=== PATIENT | female | born 1955 | race Caucasian/White ===

== ENCOUNTER 2016-09-27 18:34 | Emergency (ER) | payer MEDICARE ==
[2016-09-27 19:41] LABS: ABSOLUTE BASOPHILS # (AUTO) 0.1 10^3/uL (0.0-0.2); ABSOLUTE EOSINOPHILS # (AUTO) 0.2 10^3/uL (0.0-0.6); ABSOLUTE LYMPHOCYTES (AUTO) 2.2 10^3/uL (0.5-4.7); ABSOLUTE MONOCYTES (AUTO) 1.4 10^3/uL (0.1-1.4); BASOPHILS % (AUTO) 0.7 % (0-2); EOSINOPHILS % (AUTO) 1.5 % (0-6); HEMATOCRIT 35.3 % (36.0-47.0); HEMOGLOBIN 11.9 g/dL (12.0-15.5); HGB HCT DIFFERENCE 0.4; LYMPHOCYTES % (AUTO) 14.9 % (13-45); MEAN CORPUSCULAR HGB CONC 33.8 g/dL (32.0-36.0); MEAN CORPUSCULAR VOLUME 89 fl (80-97); MONOCYTES % (AUTO) 9.4 % (3-13); RED BLOOD COUNT 3.97 10^6/uL (3.72-5.28); RED CELL DISTRIBUTION WIDTH 13.1 % (11.5-14.0); SEGMENTED NEUTROPHILS % (AUTO) 73.5 % (42-78); WHITE BLOOD COUNT 14.9 10^3/uL (4.0-10.5)
[2016-09-27 20:05] LABS: ALANINE AMINOTRANSFERASE 26 U/L (9-52); ALBUMIN 3.4 g/dL (3.5-5.0); ALKALINE PHOSPHATASE 107 U/L (38-126); ANION GAP 13 (5-19); ASPARTATE AMINO TRANSFERASE 36 U/L (14-36); BILIRUBIN,DIRECT 0.4 mg/dL (0.0-0.4); BILIRUBIN,TOTAL 0.5 mg/dL (0.2-1.3); BLOOD UREA NITROGEN 26 mg/dL (7-20); CALCIUM 8.6 mg/dL (8.4-10.2); CARBON DIOXIDE 21 mmol/L (22-30); CHLORIDE 96 mmol/L (98-107); CREATINE KINASE 170 U/L (30-135); CREATININE RESULT 3.07 mg/dL (0.52-1.25); GLUCOSE 166 mg/dL (75-110); POTASSIUM 3.3 mmol/L (3.6-5.0); SODIUM 129.7 mmol/L (137-145); TOTAL PROTEIN 6.3 g/dL (6.3-8.2)
--- NOTE | 2016-09-27 20:09 | RADIOLOGY REPORT (SQ) ---
EXAM DESCRIPTION: CHEST SINGLE VIEW COMPLETED DATE/TIME: 09/27/2016 7:42 pm REASON FOR STUDY: falls COMPARISON: 01/17/2015 EXAM PARAMETERS: NUMBER OF VIEWS: One view. TECHNIQUE: Single frontal radiographic view of the chest acquired. RADIATION DOSE: NA LIMITATIONS: None. FINDINGS: LUNGS AND PLEURA: No acute opacities, masses or pneumothorax. No pleural effusion. MEDIASTINUM AND HILAR STRUCTURES: Stable. HEART AND VASCULAR STRUCTURES: Stable. BONES: No acute findings. HARDWARE: None in the chest. OTHER: No other significant finding. IMPRESSION: NO ACUTE RADIOGRAPHIC FINDING IN THE CHEST. TECHNICAL DOCUMENTATION: JOB ID: [id number]
--- NOTE | 2016-09-27 20:13 | RADIOLOGY REPORT (SQ) ---
EXAM DESCRIPTION: CT HEAD WITHOUT COMPLETED DATE/TIME: 09/27/2016 8:00 pm REASON FOR STUDY: multiple falls COMPARISON: None. TECHNIQUE: Axial images acquired through the brain without intravenous contrast. Images reviewed wi th bone, brain and subdural windows. Images stored on PACS. All CT scanners at this facility use dose modulation, iterative reconstruction, and/or weight based d osing when appropriate to reduce radiation dose to as low as reasonably achievable (ALARA). [facility]: Dose Right [facility]: CareDose [facility]: Dose Right [facility]: Teradose 4D [facility]: [employer] RADIATION DOSE: 64.61 mGy. LIMITATIONS: None. FINDINGS: VENTRICLES: Prominent. CEREBRUM: No masses. No hemorrhage. No midline shift. Areas of low density in the white matter mos t likely due to chronic micro-vascular ischemic change. No evidence for acute infarction. CEREBELLUM: No masses. No hemorrhage. No alteration of density. No evidence for acute infarction. EXTRAAXIAL SPACES: Mild age-related involutional change. No fluid collections. No masses. ORBITS AND GLOBE: No intra- or extraconal masses. Normal contour of globe without masses. CALVARIUM: No fracture. PARANASAL SINUSES: No fluid or mucosal thickening. SOFT TISSUES: No mass or hematoma. OTHER: No other significant finding. IMPRESSION: MILD CHRONIC CHANGES OF ATROPHY AND MICROVASCULAR ISCHEMIA. NO ACUTE PROCESS. TECHNICAL DOCUMENTATION: JOB ID: [id number] Quality ID # [id number]: Final reports with documentation of one or more dose reduction techniques (e.g., Au tomated exposure control, adjustment of the mA and/or kV according to patient size, use of iterative reconstruction technique) 2010 [employer]- All Rights Reserved
--- NOTE | 2016-09-27 20:15 | RADIOLOGY REPORT (SQ) ---
EXAM DESCRIPTION: CT CERVICAL SPINE WITHOUT COMPLETED DATE/TIME: 09/27/2016 8:00 pm REASON FOR STUDY: s/p fall COMPARISON: 06/10/2013 TECHNIQUE: Axial images acquired through the cervical spine without intravenous contrast. Images re viewed with lung, soft tissue and bone windows. Reconstructed coronal and sagittal MPR images review ed. Images stored on PACS. All CT scanners at this facility use dose modulation, iterative reconstruction, and/or weight based d osing when appropriate to reduce radiation dose to as low as reasonably achievable (ALARA). [facility]: Dose Right [facility]: CareDose [facility]: Dose Right [facility]: Teradose 4D [facility]: [employer] RADIATION DOSE: 34.21 mGy. LIMITATIONS: None. FINDINGS: ALIGNMENT: Anatomic. MINERALIZATION: Normal. VERTEBRAL BODIES: No fractures or dislocation. DISCS: Multilevel disc space narrowing with osteophytes. FACETS, LATERAL MASSES, POSTERIOR ELEMENTS: Facet arthropathy. No fractures. No dislocation. No ac lisa findings. HARDWARE: None in the spine. VISUALIZED RIBS: No fractures. LUNG APICES AND SOFT TISSUES: No acute findings. OTHER: No other significant finding. IMPRESSION: CHRONIC DEGENERATIVE CHANGES. NO ACUTE FINDINGS. TECHNICAL DOCUMENTATION: JOB ID: [id number] Quality ID # [id number]: Final reports with documentation of one or more dose reduction techniques (e.g., Au tomated exposure control, adjustment of the mA and/or kV according to patient size, use of iterative reconstruction technique) 2010 [employer]- All Rights Reserved
[2016-09-27 20:17] LABS: CREATINE KINASE MB 9.14 ng/mL (<4.55)
[2016-09-27 20:21] LABS: TROPONIN I 4.89 ng/mL
[2016-09-27] MEDS ORDERED: ASPIRIN 325 MG TABLET PO ONE (20:59)
--- NOTE | 2016-09-27 21:10 | ER Document Report ---
ED General Pain - General Chief Complaint: Back Pain Stated Complaint: EYE PAIN Time Seen by Provider: 09/27/16 19:18 Notes: The patient is a 61-year-old female, past medical history diabetes type 2, hypertension, fibromyalgia, depression, presents with several months of right lower back pain. In addition she is feeling like there is pressure behind her eyes for several weeks. She also had a feeling of tingling down her left leg a few days ago. She denies any chest pain, nausea, vomiting, shortness of breath, leg swelling, fevers, abdominal pain, numbness, current tingling, headache or urinary symptoms. TRAVEL OUTSIDE OF THE [place] IN LAST 30 DAYS: No - Related Data Allergies/Adverse Reactions: No Known Allergies Allergy (Verified 09/27/16 18:39) Past Medical History - General Information source: Patient - Social History Smoking Status: Unknown if Ever Smoked Family History: Reviewed & Not Pertinent Patient has suicidal ideation: No Patient has homicidal ideation: No - Past Medical History Cardiac Medical History: Reports: Hx Hypertension Endocrine Medical History: Reports: Hx Diabetes Mellitus Type 2, Hx Hypothyroidism Renal/ Medical History: Denies: Hx Peritoneal Dialysis Malignancy Medical History: Reports: Hx Cervical Cancer, Hx Skin Cancer Musculoskeltal Medical History: Reports Hx Arthritis, Reports Hx Fibromyalgia Psychiatric Medical History: Reports: Hx Depression Past Surgical History: Reports: Hx Appendectomy, Hx Breast Surgery, Hx Section, Hx Cholecystectomy, Hx Thyroid Surgery, Hx Tonsillectomy - Immunizations Hx Diphtheria, Pertussis, Tetanus Vaccination: Yes Hx Pneumococcal Vaccination: 03/09/13 Review of Systems - Review of Systems Notes: REVIEW OF SYSTEMS: CONSTITUTIONAL: -fevers, -chills EENT: +intermittent eye pressure, -difficulty swallowing, -nasal congestion CARDIOVASCULAR:-chest pain, -syncope. RESPIRATORY: -cough, -SOB GASTROINTESTINAL: -abdominal pain, - nausea, -vomiting, -diarrhea GENITOURINARY: -dysuria, -hematuria MUSCULOSKELETAL: +back pain, -neck pain SKIN: -rash or skin lesions. HEMATOLOGIC: -easy bruising or bleeding. LYMPHATIC: -swollen, enlarged glands. NEUROLOGICAL: -altered mental status or loss of consciousness, -headache, - neurologic symptoms PSYCHIATRIC: -anxiety, -depression. ALL OTHER SYSTEMS REVIEWED AND NEGATIVE. Physical Exam - Vital signs Vitals: Temp Pulse Resp BP Pulse Ox 98.5 F 108 H 18 105/75 97 06/21/17 18:39 09/27/16 18:39 09/27/16 18:39 09/27/16 18:39 09/27/16 18:39 - Notes Notes: PHYSICAL EXAMINATION: GENERAL: Well-appearing, well-nourished and in no acute distress. HEAD: Atraumatic, normocephalic. EYES: Pupils equal round and reactive to light, extraocular movements intact, sclera anicteric, conjunctiva are normal. ENT: nares patent, oropharynx clear without exudates. Moist mucous membranes. NECK: Normal range of motion, supple without lymphadenopathy LUNGS: Breath sounds clear to auscultation bilaterally and equal. No wheezes rales or rhonchi. HEART: Tachycardia. Regular rhythm ABDOMEN: Soft, nontender, normoactive bowel sounds. No guarding, no rebound. No masses appreciated. EXTREMITIES: Normal range of motion, no pitting or edema. No cyanosis. Tenderness over right paraspinal muscles. NEUROLOGICAL: Cranial nerves grossly intact. Normal speech, normal gait. Normal sensory and motor exams. PSYCH: Normal mood, normal affect. SKIN: Warm, Dry, normal turgor, no rashes or lesions noted. Course - Re-evaluation Re-evalutation: 09/27/16 21:[address] Erickson ([facility] [employer]) about concern for STEMI with BON in V2 and troponin of 4.9. However, with resolving ST elevations without any intervention, he does not believe that pt is having a STEMI and recommends talking to non-journeyman wireman. Spoke to Dr. Hansen ( [employer]) and he does not suspect acute coronary syndrome with the story provided. He recommends admission to hospitalist and cardiology consult. Pt never had any chest pain. 09/27/16 21:22 Concern for aortic dissection with elevated troponin, ROSANNA, back pain and numbness in left leg. Spoke to Radiologist because of elevated creatinine and he recommends obtaining CTA chest, abdomen and pelvis with and without IV dye because of high risk of dangerous pathology. Recommends large amounts of IV hydration. Spoke to patient about risk of kidney injury with the IV dye, but need for test due to high suspicion for aortic dissection. She consents to the IV dye. 09/27/16 23:27 Pt does not have aortic dissection on her CTA. 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 Patient says that she has never had kidney problems as told to her by her primary care physician and her last creatinine from 2014 and 0.7. Patient' s eye pressure has resolved and she is having no blurry vision. Do not suspect acute closed angle glaucoma at this time. Pt's back pain is chronic in nature and she has no red flag signs of low back pain. Spoke to Dr. Scott (hospitalist at [facility]) and she has accepted patient. Awaiting bed assignment. Patient is hemodynamically stable at this time. Pt started on heparin drip because of her NSTEMI and elevated creatinine. Second troponin decreased slightly from 4.89 to 4.64. - Vital Signs Vital signs: Temp Pulse Resp BP Pulse Ox 98.5 F 108 H 24 H 188/114 H 91 L 09/27/16 18:39 09/27/16 18:39 09/27/16 23:34 09/27/16 23:34 09/27/16 23:34 - Laboratory Result Diagrams: 09/27/16 19:25 09/27/16 19:25 Laboratory results interpreted by me: 09/27/16 09/27/16 09/27/16 19:25 19:25 19:25 WBC 14.9 H Hgb 11.9 L Hct 35.3 L Absolute Neutrophils 11.0 H APTT Sodium 129.7 L Potassium 3.3 L Chloride 96 L Carbon Dioxide 21 L BUN 26 H Creatinine 3.07 H Est GFR ( Amer) 19 L Est GFR (Non-Af Amer) 15 L Glucose 166 H Creatine Kinase 170 H CK-MB (CK-2) 9.14 H Albumin 3.4 L 09/28/16 00:02 WBC Hgb Hct Absolute Neutrophils APTT 41.9 H Sodium Potassium Chloride Carbon Dioxide BUN Creatinine Est GFR ( Amer) Est GFR (Non-Af Amer) Glucose Creatine Kinase CK-MB (CK-2) Albumin - Diagnostic Test Radiology reviewed: Image reviewed Radiology results interpreted by me: CTA Chest/Abdomen/Pelvis: NO AORTIC DISSECTION. Moderate atherosclerotic calcified and soft plaque throughout the abdominal aorta without aneurysm. 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 The right renal, celiac, SMA, and ALEX are patent with moderate stenosis. Small bilateral pleural effusions. Scattered small ground-glass nodular densities. Mild interstitial prominence. CXR: NAD CT Head/C-spine: NAD 09/27/16 23:42 - EKG Interpretation by Me Additional EKG results interpreted by me: EKG #1: 2mm ST elevation in V2, ST depression in lateral leads, LVH, sinus tachycardia EKG #2: 1mm ST elevation in V2, ST depression in lateral leads, LVH, sinus tachycardia EKG #3: resolved ST elevation in V2, ST depression in lateral leads, sinus tachycardia Critical Care Note - Critical Care Note Total time excluding time spent on procedures (mins): 55 Discharge - Discharge Clinical Impression: NSTEMI (non-ST elevated myocardial infarction), ROSANNA (acute kidney injury), Electrolyte abnormality Back pain Qualifiers: Back pain location: low back pain Chronicity: chronic Back pain laterality: right Sciatica presence: without sciatica Qualified Code(s): M54.5 - Low back pain Condition: Stable Disposition: [facility]
[2016-09-27] MEDS ORDERED: ENOXAPARIN SODIUM INJ 120 MG/0.8 ML DISP.SYRIN SUBCUT SCH (22:00)
[2016-09-27] MEDS: NORMAL SALINE 1000 ML 1,000 ML IV PRN (22:48)
--- NOTE | 2016-09-27 22:57 | RADIOLOGY REPORT (SQ) ---
EXAM DESCRIPTION: CTA CHEST; CTA ABDOMEN/PELVIS W WO COMPLETED DATE/TIME: 09/27/2016 10:04 pm REASON FOR STUDY: elevated troponin, back pain, ROSANNA COMPARISON: None. TECHNIQUE: CT scan of the aorta extending to the iliac bifurcation performed with and without intrav enous contrast using helical scanning technique with dynamic intravenous contrast injection. Images r eviewed with lung, soft tissue, and bone windows. Reconstructed coronal and sagittal MPR images revie wed. All images stored on PACS. Advanced 3D imaging as volume rendering, MIPS, SSD performed? yes All CT scanners at this facility use dose modulation, iterative reconstruction, and/or weight based d osing when appropriate to reduce radiation dose to as low as reasonably achievable (ALARA). [facility]: Dose Right [facility]: CareDose [facility]: Dose Right [facility]: Teradose 4D [facility]: [employer] CONTRAST TYPE AND DOSE: contrast/concentration: Isovue 300.00 mg/ml; Total Contrast Delivered: 100.0 ml; Total Saline Delivered: 40.0 ml RENAL FUNCTION: Creatinine 3.1 LIMITATIONS: None. FINDINGS: NON-CONTRASTED IMAGING: No evidence of aortic intramural hematoma. POST-CONTRAST IMAGING: AORTA AND VESSELS: No aneurysm. No dissection. Moderate atherosclerotic calcified and soft plaque th roughout the abdominal aorta. 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 The ri ght renal, celiac, SMA, and ALEX are patent with moderate stenosis. CHEST: Small bilateral pleural effusions. Scattered small ground-glass nodular densities. Mild inte rstitial prominence. Scattered small mediastinal lymph nodes. LIVER: Normal size. No masses or dilated ducts. SPLEEN: Normal size. No focal lesions. PANCREAS: No masses. No significant calcifications. No adjacent inflammation or peripancreatic fluid collections. Pancreatic duct not dilated. GALLBLADDER: Surgically absent. ADRENAL GLANDS: No significant masses or asymmetry. RIGHT KIDNEY AND URETER: Parenchymal cysts.Small parenchymal calculi without urinary tract obstructio n. 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 No mass. Small parenchymal calculi without urinary tract obstruction. RETROPERITONEUM: No retroperitoneal adenopathy, hemorrhage or masses. BOWEL AND PERITONEAL CAVITY: No masses or inflammatory changes. No free fluid or peritoneal masses. APPENDIX: Normal. ABDOMINAL WALL: No masses. No hernias. BONY STRUCTURES: No acute findings. Mildly heterogeneous appearance. 3-D IMAGING: Confirms the above findings. OTHER: No other significant finding. IMPRESSION: NO AORTIC DISSECTION. Moderate atherosclerotic calcified and soft plaque throughout the abdominal aorta without aneurysm. 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 The right renal, celiac, SMA, and ALEX are patent with moderate stenosis. Small bilateral pleural effusions. Scattered small ground-glass nodular densities. Mild interstitia l prominence. COMMENT: Per a phone conversation at approximately [address] Johnson, the ordering clinician, he determined that the severity of the patient's condition warranted scanning with contrast despite an elevated creatinine. TECHNICAL DOCUMENTATION: JOB ID: [id number] Quality ID # [id number]: Final reports with documentation of one or more dose reduction techniques (e.g., Au tomated exposure control, adjustment of the mA and/or kV according to patient size, use of iterative reconstruction technique) 2010 [employer]- All Rights Reserved
[2016-09-27] MEDS ORDERED: HEPARIN SODIUM,PORCINE/D5W 250 ML IV PRN (23:24)
[2016-09-27] MEDS ORDERED: HEPARIN SOD (PORCINE) 1,000 UNIT/ML 10 ML VIAL IV PRN (23:24)
[2016-09-27] MEDS ORDERED: HYDROCODONE/ACETAMINOPHEN 5-325 MG TABLET PO ONE (23:56)
[2016-09-28 00:18] LABS: PROTHROMBIN TIME 13.4 SEC (11.4-15.4)
[2016-09-28] MEDS ORDERED: POTASSIUM CHLORIDE 10 MEQ TABLET.SA PO ONE (00:18)
[2016-09-28 00:19] LABS: PARTIAL THROMBOPLASTIN TIME 41.9 SEC (23.5-35.8)
[2016-09-28 01:05] VITALS: BP 185/103
[2016-09-28] MEDS: NORMAL SALINE 1000 ML 1,000 ML IV PRN (01:33)
--- NOTE | 2016-09-28 10:43 | EKG REPORT ---
SEVERITY:- ABNORMAL ECG - SINUS TACHYCARDIA NONSPECIFIC INTRAVENTRICULAR CONDUCTION DELAY CONSIDER LEFT VENTRICULAR HYPERTROPHY : Confirmed by: Gwendolyn Garcia MD 28-Sep-2016 10:42:54
--- NOTE | 2016-09-28 10:43 | EKG REPORT ---
SEVERITY:- ABNORMAL ECG - SINUS TACHYCARDIA PROBABLE LEFT ATRIAL ABNORMALITY REPOL ABNRM SUGGESTS ISCHEMIA, LATERAL LEADS : Confirmed by: Gwendolyn Garcia MD 28-Sep-2016 10:42:50
--- NOTE | 2016-09-28 10:43 | EKG REPORT ---
SEVERITY:- ABNORMAL ECG - SINUS TACHYCARDIA LEFT POSTERIOR FASCICULAR BLOCK CONSIDER LEFT VENTRICULAR HYPERTROPHY : Confirmed by: Gwendolyn Garcia MD 28-Sep-2016 10:42:59
== END 2016-09-28 01:35 | disposition short-term general hospital (02) ==
LOC: ER 18:34
DX: I21.4 Non-ST elevation (NSTEMI) myocardial infarction (principal); N17.9 Acute kidney failure, unspecified; E87.8 Other disorders of electrolyte and fluid balance, not elsewhere classified; M54.5 Low back pain; I10 Essential (primary) hypertension; F32.9 Major depressive disorder, single episode, unspecified; E11.9 Type 2 diabetes mellitus without complications; E03.9 Hypothyroidism, unspecified; Z85.41 Personal history of malignant neoplasm of cervix uteri; Z85.828 Personal history of other malignant neoplasm of skin; Z90.49 Acquired absence of other specified parts of digestive tract
CPT/HCPCS: 93005; 99291; 96372; 96361; 96365; 36415; 82553; 82550; 85025; 85610; 85730; 80053; 84484; 71010; 70450; 71275; 72125; 74174; 93010; J1644; A9270 ×3; J1650; J7030 ×2